=== PATIENT | male | born 1955 | race Caucasian/White ===

== ENCOUNTER 2021-01-06 07:22 | Day surgery (SDC) | payer OTHER, SELFPAY ==
[2021-01-01 10:17] LABS: Anion Gap 7 (5-15); BUN 16 mg/dL (7-18); BUN/Creat Ratio 15.2 RATIO (10-20); Calcium,Total 9.1 mg/dL (8.5-10.1); Chloride 103 mmol/L (98-107); Creatinine, Serum 1.05 mg/dL (0.70-1.30); EST Glomerular Filtration Rate 75 mL/min (>60); Est Glom Filt Rate - Afr Amer 91 mL/min (>60); Glucose 107 mg/dL (74-106); Potassium 3.6 mmol/L (3.5-5.1); Sodium Level 139 mmol/L (136-145)
--- NOTE | 2021-01-02 14:13 | EKG12_ITS ---
Test Reason : PREOP Blood Pressure : / mmHG Vent. Rate : 085 BPM Atrial Rate : 085 BPM P-R Int : 136 ms QRS Dur : 132 ms QT Int : 402 ms P-R-T Axes : 050 109 036 degrees QTc Int : 478 ms Normal sinus rhythm Right bundle branch block Abnormal ECG Confirmed by JOSIANE ZAMAN, ZACH ([id number]), sports editor NEIL CHOUDHARY ([id number]) on 01/06/2021 10:25:06 AM Referred By: Kevin Fierro Confirmed By:ZACH JOSHUA MD
[2021-01-06 07:47] VITALS: BP 130/73; PULSE 75; RESP 18; TEMP 36.2; O2SAT 98; BMI 23.6
[2021-01-06] MEDS: Lactated Ringers 1,000 ML 100 ML IV (07:58)
[2021-01-06 08:10] LABS: Bedside Glucose 98 mg/dL (70-110)
--- NOTE | 2021-01-06 09:00 | LES_PTH ---
PATIENT: ALDO GANDHI [place] [facility] [place][id number] AGE/SX: 65/M ROOM: RE01/06/[address]: Dr. Al Fierro MD : [id number] BED: DIS: 01/06/2021 SPEC #: [id number] RECD: 01/06/21 10:15 STATUS: REMINGTON GUAJARDO #: [id number] NEHA: 01/06/21 09:[address]: Al Fierro DEPT: SURGICAL PATHOLOGY RECD BY: Jayne Robins ENTERED: 01/06/21 13:13 SP TYPE: Lesion OTHR DR: Dr. Avery Lorenz, DO Tissues: Skin of lip, NOS Procedures: Surgery Specimen Level IV HEADER OPERATION: Excision lesion lower lip PRE-OP DIAGNOSIS: Neoplasm of oral cavity TISSUE SUBMITTED: Lower lip lesion MICROSCOPIC DIAGNOSIS Lesion of lower lip, biopsy: Benign fibroepithelial polyp. AM:ina 01/07/2021 MICROSCOPIC DESCRIPTION Slides are reviewed. GROSS DESCRIPTION Received in fixative is one container labeled with the patient's name and designated lower lip lesion. The specimen consists of a polypoid piece of franco mucosal tissue measuring 1 x 0.5 x 0.5 cm. The specimen is inked, bisected and submitted entirely in one cassette. / SJ:rg 01/06/21 TC:1 CPT: 80606
--- NOTE | 2021-01-06 09:09 | PCM.DC ---
Discharge Instructions Diet Discharge Diet: No restrictions Activity Discharge Activity: Return to Normal Activity Dressing / Incision Call your doctor if your incision/area has: Foul Smelling Discharge Follow Up Care Please Follow Up With: Kevin Fierro MD When: 1 month Test Results: Test results from this visit will be discussed in further detail at your follow-up appointment, if applicable. Discharge Plan Admission Attending Provider: Kevin Fierro Primary Care Provider: Avery Lorenz Discharge Orders/Prescriptions Prescriptions: No Action atorvastatin 80 mg tablet 80 mg PO QHS RF: 0 clopidogrel 75 mg tablet 75 mg PO DAILY RF: 0 aspirin [Aspirin Low Dose] 81 mg tablet,delayed release (DR/EC) 81 mg PO DAILY RF: 0 metoprolol succinate 25 mg tablet extended release 24 hr 25 mg PO DAILY RF: 0 metformin 500 mg tablet extended release 24 hr 500 mg PO BID RF: 0 Disposition Discharge Orders: Discharge Patient (Routine); Ordered 01/06/21 Ordered By: Dr. Kevin Fierro
[2021-01-06] MEDS: Lidocaine 1% /Epi 1:100 (20ml) 20 ML Vial (09:12)
[2021-01-06 09:32] VITALS: BP 103/64; BP 130/73; PULSE 66; RESP 16; TEMP 36.4; O2SAT 96
[2021-01-06 09:45] VITALS: BP 130/73; BP 99/66; PULSE 65; RESP 16; O2SAT 97
--- NOTE | 2021-01-06 09:56 | PCM.OPRPT ---
Problems Associated Problem List Diagnoses (1) Mass of lip: Report of Operation Date of Procedure: 01/06/21 Pre-Operative Diagnosis: lower lip mass Post-Operative Diagnosis: lower lip mass Surgery/Procedure Performed:: excision mass, lower lip Surgeon: Kevin Fierro Type of Anesthesia: General Description of Procedure: on the day of the procedure, after appropriate informed consent was obtained, the patient was brought to the operating room and placed in supine position on the operating table. he was placed under general anesthesia. the lower lip was everted and the mucosal surface was injected with lidocaine/epinephrine. a 1 cm elliptical incision was made in the buccal mucosa with a round valley blade and the mass was removed with an iris scissor. the incision was closed with 4-0 chromic after hemostasis was achieved with the bipolar. he was awoken from anesthesia and transferred to the PACU in stable condition.
[2021-01-06 10:00] VITALS: BP 108/68; BP 130/73; PULSE 65; RESP 16; TEMP 36.2; O2SAT 97
[2021-01-06 10:00] LABS: Bedside Glucose 83 mg/dL (70-110)
[2021-01-06 10:42] VITALS: BP 130/73; BP 99/57; PULSE 63; RESP 16; TEMP 36.3; O2SAT 98
== END 2021-01-06 10:42 ==
LOC: SDC 07:24 → AC 07:24
PROVIDERS: PCP Student in an Organized Health Care Education/Training Program; Referring Provider Otolaryngology; Visit Provider Otolaryngology
PROC: (CPT 40812; principal; 2021-01-06 08:50)
DX: K13.0 Diseases of lips (principal); I10 Essential (primary) hypertension; I25.2 Old myocardial infarction; E11.9 Type 2 diabetes mellitus without complications; E78.00 Pure hypercholesterolemia, unspecified; Z79.84 Long term (current) use of oral hypoglycemic drugs; Z79.82 Long term (current) use of aspirin; Z79.899 Other long term (current) drug therapy
CPT/HCPCS: 00170; 40812; 36415; 80048; 82962; 87426; 88305; 93005; C9803; J7120; J2405